=== PATIENT | female | born 1995 | race Caucasian/White ===

== ENCOUNTER 2021-02-10 09:57 | Inpatient (IN) ==
[2021-02-10] MEDS ORDERED: Ringers Solution, Lactated 1,000 ML IVC SCH (10:00)
[2021-02-10] MEDS ORDERED: Ringers Solution, Lactated 1,000 ML IVC ONE (10:00)
[2021-02-10] MEDS ORDERED: Famotidine 20 MG/2 ML VIAL IVP ONE ×2 (10:00→15:01)
[2021-02-10] MEDS ORDERED: Metoclopramide 10 MG/2 ML VIAL IVP ONE ×2 (10:00→15:01)
[2021-02-10] MEDS ORDERED: CeFAZolin 2,000 MG/120 ML BAG IVPB ONE (10:00)
[2021-02-10] MEDS ORDERED: Oxytocin 20 units/ LR 1000 mL 20 UNIT/1,000 ML BAG IVC SCH ×2 (10:00→19:00)
[2021-02-10] MEDS ORDERED: Oxytocin 20 units/ LR 1000 mL 20 UNIT/1,000 ML BAG IVC ONE ×2 (10:00→15:40)
[2021-02-10 10:54] LABS: Basophils % 0.3 %; Eosinophils # 0.1 K/mcL (0.0-0.6); Eosinophils % 0.6 %; Hematocrit 39.9 % (35.3-44.9); Hemoglobin 13.2 g/dL (11.5-15.4); Immature Granulocytes % 0.5 % (0-4); Lymphocytes # 2.3 K/mcL (0.6-4.6); Lymphocytes % 21.1 %; Mean Corpuscular HGB Conc 33.1 g/dL (31.6-35.5); Mean Corpuscular Hemoglobin 29.3 pg (28.0-33.3); Mean Corpuscular Volume 88.5 fL (83.0-100.0); Mean Platelet Volume 11.9 fL (9.4-12.4); Monocytes # 0.6 K/mcL (0.0-1.3); Monocytes % 5.5 %; Neutrophils # 7.9 K/mcL (1.6-8.9); Platelet Count 167 K/mcL (140-400); Red Blood Count 4.51 M/mcL (3.82-4.97); Red Cell Distribution Width 13.3 % (11.5-14.5)
[2021-02-10 11:26] LABS: Influenza A PCR Negative (Negative); Influenza B PCR Negative (Negative); Resp. Syncytial Virus PCR Negative (Negative); SARS-CoV-2 by PCR (In House) Negative (Negative)
[2021-02-10 14:40] LABS: Amphetamine Screen,Urine Negative ng/mL (Cutoff=1000); Barbiturate Screen,Urine Negative ng/mL (Cutoff=200); Benzodiazepines Screen,Urine Negative ng/mL (Cutoff=200); Cannabinoid Screen,Urine Negative ng/mL (Cutoff = 50); Cocaine Screen,Urine Negative ng/mL (Cutoff= 300); Opiate Screen,Urine Negative ng/mL (Cutoff=300); Phencyclidine Screen,Urine Negative ng/mL (Cutoff=25)
[2021-02-10] MEDS ORDERED: Metoclopramide 10 MG/2 ML VIAL ONE (15:00)
[2021-02-10] MEDS ORDERED: Famotidine 20 MG/2 ML VIAL ONE (15:00)
[2021-02-10] MEDS ORDERED: *HR* FentaNYL (PF) 100 MCG/2 ML VIAL ONE (15:01)
[2021-02-10] MEDS ORDERED: *HR* Morphine Sulfate/PF 10 MG/10 ML AMPUL ONE (15:01)
[2021-02-10] MEDS ORDERED: Ondansetron 4 MG/2 ML VIAL ONE (15:02)
[2021-02-10] MEDS ORDERED: Acetaminophen IV 1,000 MG/100 ML BAG IVPB ONE (15:02)
[2021-02-10] MEDS ORDERED: Ketorolac 30 MG/ML VIAL ONE (15:09)
[2021-02-10] MEDS ORDERED: *HR* Nalbuphine 10 MG/ML AMPUL IV PRN (17:05)
[2021-02-10] MEDS ORDERED: Simethicone 80 MG TAB.CHEW PO PRN (19:00)
[2021-02-10] MEDS ORDERED: Ondansetron 4 MG/2 ML VIAL IVP PRN (19:00)
[2021-02-10] MEDS ORDERED: *HR* OxyCODONE Immed Rel 5 MG TABLET PO PRN (19:00)
[2021-02-10] MEDS ORDERED: Metoclopramide 10 MG/2 ML VIAL IVP PRN (19:00)
[2021-02-10] MEDS: Acetaminophen 325 MG TABLET PO SCH (21:13)
[2021-02-10] MEDS: Ibuprofen 600 MG TABLET PO SCH (21:13)
[2021-02-11] MEDS: Ibuprofen 600 MG TABLET PO SCH ×2 (06:06→13:15)
[2021-02-11] MEDS: Acetaminophen 325 MG TABLET PO SCH ×2 (06:07→13:14)
[2021-02-11 07:43] VITALS: BP 115/69; TEMP 98.1; O2SAT 98
[2021-02-11] MEDS ORDERED: Prenatal Vit/FA 1 EACH TABLET PO SCH (09:00)
[2021-02-11 16:08] VITALS: PULSE 68
== END 2021-02-11 16:57 | disposition home or self-care (01) | DRG 540 ==
LOC: 1NENULAB 09:57 → EDSTATUS 12:00 → 1NENUOBS 18:51
PROVIDERS: ADMIT Obstetrics & Gynecology; ATTEND Obstetrics & Gynecology